=== PATIENT | female | born 1980 | race Caucasian/White ===

== ENCOUNTER 2020-02-03 20:30 | Observation (INO) | payer OTHER ==
[2020-02-03] MEDS ORDERED: Lorazepam 2 MG/ML VIAL ONE (20:39)
[2020-02-03] MEDS ORDERED: Morphine 4 MG/ML VIAL ONE (20:39)
--- NOTE | 2020-02-03 21:02 | RAD ---
Exam: Chest one view HISTORY:Chest pain. Comparison: None. FINDINGS: Cardiac silhouette: Normal Aorta: Unremarkable Pulmonary vessels: Normal Costophrenic angles: Clear LUNGS: No masses or consolidation. Pneumothorax: None Osseous abnormalities: None IMPRESSION: No acute cardiopulmonary process.
[2020-02-03 21:03] LABS: #Basophils 0.1 thou/uL (0.0-0.2); #Eosinphils 0.4 thou/uL (0.0-0.7); #Monocytes 0.3 thou/uL (0.11-0.59); #Neutrophils 2.8 thou/uL (1.40-6.50); %Eosinophils 6.5 % (0.0-10.0); %Lymphocytes 36.3 % (21.0-51.0); %Monocytes 5.3 % (0.0-10.0); %Neutrophils 50.9 % (42.0-75.0); Hemoglobin 12.9 g/dL (12.0-16.0); Mean Corpuscular HGB CONC 35.5 g/dL (32.0-36.0); Mean Corpuscular Hemoglobin 31.2 pg (27.0-31.0); Mean Corpuscular Volume 87.8 fL (78.0-98.0); Mean Platelet Volume 6.9 fL (7.4-10.4); Platelet Count 270 thou/uL (130-400); RBC Distribution Width 11.7 % (11.5-14.5); Red Blood Cell (RBC) Count 4.13 mill/uL (4.20-5.40); White Blood Cell (WBC) Count 5.4 thou/uL (4.8-10.8)
[2020-02-03 21:30] LABS: BHCG - Serum Negative (NEGATIVE); Pregs Control Background? CLEAR/WHITE (CLR/WHITE); Pregs Control Bar Appear? YES (CONTROL BAR)
[2020-02-03 21:33] LABS: ALT (SGPT) 20 U/L (8-55); AST (SGOT) 24 U/L (5-34); Albumin 4.4 g/dL (3.5-5.0); Alkaline Phosphatase 40 U/L (40-110); Anion Gap 18 mmol/L (10-20); BUN (Urea Nitrogen) 11 mg/dL (7.0-18.7); Bilirubin, Total 0.2 mg/dL (0.2-1.2); Calc. Creatinine Clearance 0 mL/min (70-130); Calcium 8.8 mg/dL (7.8-10.44); Carbon Dioxide 21 mmol/L (22-29); Chloride 101 mmol/L (98-107); Estimated GFR-MDRD 83; Globulin 2.6 g/dL (2.4-3.5); Glucose 94 mg/dL (70-105); Potassium 3.4 mmol/L (3.5-5.1); Sodium 137 mmol/L (136-145)
--- NOTE | 2020-02-03 21:36 | CT ---
Exam: Head CT without contrast HISTORY: Chest pain. Patient fell and hit her head. COMPARISON: none FINDINGS: Hemorrhage: No intraparenchymal hemorrhage or extra-axial hematoma. Brain parenchyma: Cortical torres-white matter differentiation is preserved. No mass effect or midline shift. Basilar cisterns are patent. Ventricular system: Ventricles and sulci are patent and symmetric. Calvarium: Intact. Sinuses and mastoid air cells: Adequate aeration. IMPRESSION: No intracranial post traumatic sequelae.
[2020-02-03] MEDS ORDERED: Nitroglycerin 2% Ointment 1 INCH/1 GM Packet ONE (21:44)
[2020-02-03] MEDS ORDERED: Aspirin 325 MG TAB ONE (21:44)
[2020-02-03 21:55] LABS: CKMB 1.3 ng/mL (0-6.6)
[2020-02-03] MEDS ORDERED: Mag-Al 1200 mg/1200 mg/30 ML UDCUP ONE (22:07)
[2020-02-03] MEDS ORDERED: Pantoprazole 40 MG VIAL ONE (22:07)
[2020-02-03] MEDS ORDERED: Lidocaine Viscous Sol 2% 15 ml UD Cup ONE (22:07)
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
[2020-02-03] MEDS ORDERED: Nitroglycerin 0.4 MG TAB (25 Tab Bottle) PO PRN (23:27)
[2020-02-03] MEDS ORDERED: Atorvastatin Calcium 40 MG TAB PO SCH (23:59)
[2020-02-03] MEDS ORDERED: Sodium Chloride 0.9% 1,000 ML IV SCH (23:59)
[2020-02-04 00:36] LABS: Troponin I Less than 0.010 ng/mL (< 0.028)
[2020-02-04] MEDS: Acetaminophen 325 MG TAB PO PRN ×3 (00:50→21:07)
[2020-02-04 01:01] LABS: Bacteria/HPF None Seen HPF (None Seen); Bilirubin Negative (Negative); Blood, Urine Negative (Negative); Clarity Clear (Clear); Glucose, Urine (Dipstick) Normal (Negative); Ketone, Urine Negative (Negative); Leukocyte Negative Leu/uL (Negative); Nitrite Negative (Negative); Protein, Urine (Dipstick) Negative (Neg-Trace); RBC/HPF 0-3 HPF (0-3); Specific Gravity, Urine 1.002 (1.002-1.036); Squamous Epithelial 0-3 HPF (0-3); Urobilinogen Normal mg/dL (Less than 2); WBC/HPF None Seen HPF (0-3)
[2020-02-04 01:03] VITALS: BMI 25.6
[2020-02-04] MEDS ORDERED: diphenhydrAMINE 25 MG CAP PO PRN (01:11)
[2020-02-04 01:13] LABS: Amphetamine Not Detected (NotDetected); Barbiturates Screen Detected (NotDetected); Benzodiazepine Screen Not Detected (NotDetected); Cocaine Metabolite Screen Not Detected (NotDetected); Medtox Control Line Valid? VALID (VALID); Medtox Reader # READER 4; Methadone Not Detected (NotDetected); Methamphetamine Not Detected (NotDetected); Opiate Screen Detected (NotDetected); Oxycodone Screen Not Detected (NotDetected); Phencyclidine (PCP) Not Detected (NotDetected); THC/Cannabinoid Screen Not Detected (NotDetected); Tricyclic Screen Not Detected (NotDetected)
[2020-02-04] MEDS ORDERED: Morphine 2 MG/ML VIAL SLOW IVP SCH (01:15)
[2020-02-04 04:20] LABS: Anion Gap 15 mmol/L (10-20); BUN (Urea Nitrogen) 9 mg/dL (7.0-18.7); Calc. Creatinine Clearance 141 mL/min (70-130); Carbon Dioxide 21 mmol/L (22-29); Cardiac Risk 2.1 (Less than 4.5); Chloride 110 mmol/L (98-107); Cholesterol 184 mg/dl (< 200 Desired); Estimated GFR-MDRD Greater than 90; Glucose 80 mg/dL (70-105); HDL Cholesterol 88 mg/dL (>60 Neg Risk); LDL Cholesterol, Calculated 77 mg/dL; Potassium 3.8 mmol/L (3.5-5.1); Sodium 142 mmol/L (136-145); Triglycerides 93 mg/dL (Less than 150)
[2020-02-04 04:24] LABS: #Eosinphils 0.3 thou/uL (0.0-0.7); #Lymphocytes 1.6 thou/uL (1.20-3.40); #Monocytes 0.2 thou/uL (0.11-0.59); #Neutrophils 1.4 thou/uL (1.40-6.50); %Basophils 0.9 % (0.0-1.0); %Eosinophils 9.6 % (0.0-10.0); %Lymphocytes 45.1 % (21.0-51.0); %Monocytes 5.5 % (0.0-10.0); %Neutrophils 38.8 % (42.0-75.0); Mean Corpuscular HGB CONC 33.9 g/dL (32.0-36.0); Mean Corpuscular Hemoglobin 30.5 pg (27.0-31.0); Mean Platelet Volume 7.7 fL (7.4-10.4); Platelet Count 215 thou/uL (130-400); RBC Distribution Width 11.7 % (11.5-14.5); Red Blood Cell (RBC) Count 3.93 mill/uL (4.20-5.40); White Blood Cell (WBC) Count 3.6 thou/uL (4.8-10.8)
[2020-02-04 04:33] LABS: Troponin I Less than 0.010 ng/mL (< 0.028)
[2020-02-04] MEDS: Nitroglycerin 2% Ointment 1 INCH/1 GM Packet TOP SCH ×3 (04:46→21:38)
[2020-02-04 05:02] LABS: Acetaminophen Less than 6.0 mcg/mL (10.0-30.0); Alcohol 84 mg/dL (Less than 10); Salicylate Less than 8.0 mg/dL (15.0-30.0)
[2020-02-04] MEDS: Pantoprazole 40 MG VIAL IVP SCH (08:21)
[2020-02-04] MEDS ORDERED: ADENOSINE 60 MG/20 ML VIAL ONE (11:33)
[2020-02-04 12:31] LABS: SARS-CoV-2 MS2 Positive; SARS-CoV-2 N Gene Negative; SARS-CoV-2 S Gene Negative; SARS-CoV-2 by NAA Not Detected (NotDetected); SARS-CoV-2 orf1ab Negative
[2020-02-04] MEDS: Aspirin 81 mg Enteric Coated Tablet PO SCH (12:55)
--- NOTE | 2020-02-04 13:44 | NM ---
NUCLEAR MEDICINE CARDIAC MYOCARDIAL PERFUSION SPECT EJECTION FRACTION STUDY WALL MOTION CINE: DATE: 02/04/2020 HISTORY: 39-year-old female with hypertension and family history of coronary artery disease presents with acut e chest pain TECHNIQUE: Number of days: 1 Rest study: Technetium 99m-sestamibi (Cardiolite) dose: 9.0 mCi Pharmacologic stress: Adenosine dose: 42.8 mg Stress study: Technetium 99m-sestamibi (Cardiolite) dose: 27.4 mCi FINDINGS: CARDIAC (MYOCARDIAL PERFUSION) SPECT There are no reversible myocardial perfusion defects. There is a questionable small anteroseptal fixed defect suggestive of possible infarction/scar. EJECTION FRACTION STUDY Left ventricular EF = 70 % WALL MOTION CINE Normal IMPRESSION: No evidence of reversible ischemia.
[2020-02-04] MEDS ORDERED: Famotidine 20 MG TAB PO SCH (15:15)
[2020-02-04] MEDS ORDERED: Communication Order-Pharmacy FS SCH (16:30)
[2020-02-04] MEDS ORDERED: Amlodipine 5 MG TAB PO SCH (18:15)
--- NOTE | 2020-02-04 18:28 | PDOC.HOSPP ---
- Subjective Encounter Date: 02/04/20 Encounter Time: 16:00 Subjective: The patient reports that her chest pain improved some. She reports having two episodes of chest pain, one that occurred while sleeping, lasted an hour and brought her to tears. REported some relief with aspirin. Had a similar episode years ago but not quite as severe. That time she was short of breath, does not recall being diaphoretic. SHe states her pain comes and goes, on left side radiating to the jaw. Denies burning sensation .States happened so fast does not know about pain with exertion Patient does not smoke. 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 Denies stress or anxiety Patient reports having three drinks of alcohol yesterday. She states she takes fioricet for migraines occasionally - Objective Vital Signs & Weight: Vital Signs (12 hours) Temp Pulse Resp BP Pulse Ox 02/04/20 16:18 98.7 F 79 16 165/102 H 98 02/04/20 12:30 98.1 F 69 16 121/74 100 02/04/20 08:40 97 02/04/20 08:30 98.7 F 71 17 107/56 L 97 Weight Weight 168 lb 6 oz I&O: 02/03/20 02/04/20 02/05/20 06:59 06:59 06:59 Intake Total 100 Output Total 0 Balance 100 Result Diagrams: 02/04/20 02:56 02/04/20 02:56 Hospitalist ROS - Review of Systems Constitutional: denies: fever, chills - Medication Medications: Active Medications Generic Name Dose Route Start Last Admin Trade Name Freq PRN Reason Stop Dose Admin Acetaminophen 650 mg 02/03/20 23:31 02/04/20 12:55 Tylenol PO 650 mg Q4H PRN Administration Headache/Fever/Mild Pain (1-3) Aspirin 81 mg 02/04/20 09:00 02/04/20 12:55 Ecotrin PO 81 mg DAILY CHRISTOPHE Administration Diphenhydramine HCl 25 mg 02/04/20 01:11 02/04/20 01:45 Benadryl PO 25 mg HS PRN Administration Allergies Nitroglycerin 0.5 inch 02/04/20 06:00 02/04/20 15:36 Nitro-Bid 2% Ointment TOP Not Given Q8HR CHRISTOPHE Pantoprazole Sodium 40 mg 02/04/20 09:00 02/04/20 08:21 Protonix IVP 40 mg DAILY CHRISTOPHE Administration - Exam General Appearance: NAD, awake alert Eye: PERRL, anicteric sclera ENT: normocephalic atraumatic, no oropharyngeal lesions Neck: no JVD Heart: RRR, no murmur, no gallops, no rubs, normal peripheral pulses Respiratory: CTAB, no wheezes, no rales, no ronchi Gastrointestinal: soft, non-tender, non-distended Hosp A/P - Plan This is 39 year old female who presented with chest pain Chest pain - nuclear stress test shows fixed defect. Continues to have chest pain so will check ECHO - check cardiology consult. EKG appears benign - ddimer negative - anticipate dc in am Leukopenia - WBC 3.6, - COVID negative Alcohol use - plasma alcohol elevated, reported three drinks yesterday Migraines - takes fioricet prn
--- NOTE | 2020-02-04 18:34 | CON ---
DATE OF CONSULTATION: HISTORY OF PRESENT ILLNESS: The patient is a 39-year-old woman, who presents with midsternal chest discomfort. The patient states many years ago, she had brief episodes of substernal chest discomfort. The patient states this subsequently resolved, she was in her usual state of health until Monday. She developed midsternal chest discomfort that lasted approximately 30 minutes. The discomfort radiated to her back and shoulders and subsequently resolved. The chest discomfort returned yesterday. It was once again midsternal. This persisted and she came to the emergency room for further evaluation. The patient states she has continued to have chest discomfort in the evening. She states today the chest discomfort continues, but it is less severe. The patient also reports being mildly dyspneic. The patient's cardiac risk factor is a family history of coronary artery disease. PAST MEDICAL HISTORY: Anxiety disorder. PAST SURGICAL HISTORY: hysterectomy and tonsillectomy. SOCIAL HISTORY: Nonsmoker. FAMILY HISTORY: Positive family history of coronary artery disease with a grandfather who had coronary artery bypass surgery. MEDICATIONS: 1. Hormone replacement. 2. Ritalin. 3. Zyrtec. PHYSICAL EXAMINATION: GENERAL: This is an anxious woman, in no acute distress. VITAL SIGNS: Blood pressure is 121/74. NECK: No jugular venous distention. LUNGS: Clear to auscultation. HEART: Regular rate and rhythm. Normal S1 and S2. No murmurs. ABDOMEN: Nondistended. EXTREMITIES: Showed no edema. VASCULAR: Radial pulses are 2+. LABORATORY RESULTS: White blood cell count is 3.6, hemoglobin 12.0, hematocrit 35.5, platelets are 215. Sodium was 142, potassium 3.8, chloride 110, bicarbonate 21, BUN 9, creatinine 0.66, glucose was 80. Troponin was 0.033. Her D-dimer is less than 0.27. EKG r normal sinus rhythm with sinus arrhythmia. IMPRESSION: 1. Chest pain with primarily atypical features. 2. Abnormal Cardiolite stress test. 3. Elevated troponin level. This patient presented with chest pain that has primarily atypical features. The patient underwent a Cardiolite stress test, revealed to have evidence of possible scar in the distal anteroseptal wall. I discussed the options with the patient , as it is, I told her this is unlikely to be insurance claims representative of true ischemia or infarct. The patient, however, highly prefers to have a definitive diagnosis. I explained the risk, and would like to undergo an invasive evaluation. The risks involved in cardiac catheterization: ID, bleeding, stroke, cardiac arrhythmia, and cardiac have been explained to the patient. The patient understands these risks and wishes to proceed. PLAN: Proceed with cardiac catheterization. Job ID: [id number] MTDD
[2020-02-05] MEDS: Pantoprazole 40 MG VIAL IVP SCH (05:03)
[2020-02-05] MEDS: Aspirin 81 mg Enteric Coated Tablet PO SCH (05:03)
[2020-02-05] MEDS: Nitroglycerin 2% Ointment 1 INCH/1 GM Packet TOP SCH ×2 (07:14→14:54)
[2020-02-05] MEDS ORDERED: Lidocaine 1% (PF) 30 ML VIAL ONE (09:08)
[2020-02-05] MEDS ORDERED: Midazolam HCl 2 mg/2 ml Vial ONE (09:42)
[2020-02-05] MEDS ORDERED: Fentanyl 100 MCG/2 ML VIAL ONE (09:48)
[2020-02-05] MEDS ORDERED: Sodium Chloride 0.9% 200 ML IV PRN (10:04)
[2020-02-05] MEDS ORDERED: Iopamidol 370 76% 100 ML VIAL ONE (11:21)
[2020-02-05 15:10] VITALS: BP 119/65; TEMP 98.6
[2020-02-05] MEDS ORDERED: oxyCODONE/Acetaminophen 5 mg/325 mg Tablet PO PRN (16:58)
--- NOTE | 2020-02-05 17:55 | ULT ---
Exam: Right groin ultrasound. HISTORY: Cardiac catheterization today. Evaluate for pseudoaneurysm. TECHNIQUE: Grayscale, color flow, Doppler imaging and spectral waveform analysis the right groin FINDINGS: Right common femoral artery is patent. There is triphasic flow. No evidence of pseudoaneury sm. There is mild soft tissue swelling the right groin. IMPRESSION: Soft tissue swelling. No evidence of pseudoaneurysm.
--- NOTE | 2020-02-06 04:12 | DIS ---
DATE OF ADMISSION: 02/03/2020 DATE OF DISCHARGE: 02/05/2020 DISCHARGE DIAGNOSES: 1. Chest pain possibly secondary to anxiety versus musculoskeletal etiology. 2. Leukopenia. 3. Mild right femoral hematoma. CONSULTATIONS: Cardiology. PROCEDURES PERFORMED: Cardiac cath, 02/02. BRIEF HISTORY OF PRESENT ILLNESS: This is a 39-year-old female with a past medical history of migraines, who presented to the emergency room with chest pain. The patient states her chest pain woke her up from her sleep, lasted an hour and radiated to her left upper extremity in her left neck. She stated she had one episode two years ago, but it was not as severe. She states that the pain was so bad it brought her to tears. Apparently when patient came to the emergency room , she was slightly confused. There was a concern by the admitting nurse practitioner that the patient was possibly having a possible nervous breakdown. The patient states that she received morphine and nitroglycerin and her pain resolved. She was admitted for further workup. HOSPITAL COURSE: Chest pain: The patient had three sets of troponin. Her first one was mildly positive at 0.033. Her EKG was normal. The patient underwent a stress test, which showed a scar in the anteroseptal area. She then underwent an echocardiogram which was normal. Cardiology was consulted and she underwent a cardiac cath, which was normal. She was advised to follow up with her PCP. The patient did not want to take any aspirin at the time of discharge and she was advised that she can take Tylenol as needed for her pain. D-dimer was elevated , so there is no concern for blood clot of her lung. Right femoral hematoma: The patient states that after bed rest from her cardiac cath procedure she developed severe pain in right inguinal area after standing. She had mild swelling in the area, but this remained stable after an hour. She did have a lower extremity ultrasound done, which showed mild soft tissue swelling but no evidence of pseudoaneurysm. She will follow up with her PCP in a week. DISCHARGE PHYSICAL EXAMINATION: VITAL SIGNS: Temperature 98.6, heart rate 62, respiratory rate 20, O2 saturation 100% on room air, and blood pressure 119/65. GENERAL: The patient is alert, awake, and oriented x3. CVS: Regular rate and rhythm with no murmurs, rubs, or gallops. LUNGS: Clear to auscultation bilaterally. ABDOMEN: Positive bowel sounds. Soft, nontender, and nondistended. EXTREMITIES: No edema. PERTINENT LABORATORY DATA: CBC 02/03: White count 3.6, hemoglobin 12.0, hematocrit 35.4, and platelet count 215. BMP 02/03: Negative. Troponin I: 0.033, 0.010, 0.010. LFTs 02/02: Normal. TSH 02/02: 0.5. Lipid panel: LDL 77, triglyceride 93, total cholesterol 184. UA 02/03: Negative. U tox 02/03: Positive for opiates and barbiturates. Plasma alcohol level: 84. COVID PCR 02/03: Negative. IMAGING: CT brain 02/02: Shows no acute disease. Chest x-ray 02/02: No acute disease. Nuclear stress test 02/03: No evidence of reversible ischemia. Lower extremity ultrasound 02/04: Soft tissue swelling with no evidence of pseudoaneurysm. Echo 02/04: Normal with ejection fraction of 55% to 60%. DISCHARGE CONDITION: Stable. ACTIVITY: As tolerated. DIET: Regular diet. DISCHARGE MEDICATIONS: None. DISCHARGE INSTRUCTIONS: The patient presented with chest pain. Her echo showed mild tricuspid regurg. Cardiac cath was normal. Please follow up with her PCP in a week and come back to the hospital if she has severe chest pain. Job ID: [id number] [facility]
== END 2020-02-05 18:35 | disposition home or self-care (01) ==
LOC: ERS 20:30 → 2NO 22:14
PROVIDERS: ADMIT Family Medicine; ATTEND Family Medicine
PROC: 4A023N7 Measurement of Cardiac Sampling and Pressure, Left Heart, Percutaneous Approach (ICD-10-PCS; principal; 2020-02-05)
PROC: B2111ZZ Fluoroscopy of Multiple Coronary Arteries using Low Osmolar Contrast (ICD-10-PCS; 2020-02-05)
DX: R07.89 Other chest pain (principal); D72.819 Decreased white blood cell count, unspecified; M79.81 Nontraumatic hematoma of soft tissue; E87.6 Hypokalemia; I07.1 Rheumatic tricuspid insufficiency; F41.9 Anxiety disorder, unspecified; Z88.0 Allergy status to penicillin; Z88.1 Allergy status to other antibiotic agents; Z88.5 Allergy status to narcotic agent; Z88.6 Allergy status to analgesic agent; Z88.8 Allergy status to other drugs, medicaments and biological substances; Z82.49 Family history of ischemic heart disease and other diseases of the circulatory system; Z20.828 Contact with and (suspected) exposure to other viral communicable diseases
CPT/HCPCS: 36415; 70450; 71045; 78452; 80048; 80053; 80061; 80306; 80307; 81001; 82553; 83690; 83735; 83880; 84443; 84484; 84703; 85025; 85379; 87635; 93005; 93017; 93306; 93458; 93926; 94760; 96374; 96375; 96376; 99152; A9500; C9113; G0378; J0153; J1644; J2001; J2060; J2250; J2270; J3010; Q0163; Q9967; U0003